=== PATIENT | male | born 1945 | race Two or more races ===

== ENCOUNTER 2017-06-17 18:56 | Inpatient (IN) | payer MEDICARE ==
[~2017-06-17] VITALS: Ht 162.6 cm; Wt 54.4 kg
--- NOTE | 2017-06-17 18:58 | Emergency Room Report ---
History of Present Illness General Source: Patient Present Illness HPI Patient is a 71-year-old male brought in by EMS after increased confusion. The patient poorly had a recent fall. Prior history of back herniated disks. Patient is a resident of [facility] Allergies: Coded Allergies: No Known Allergies (Unverified , 11/17/16) Patient History Past Medical History: see triage record Reviewed Nursing Documentation: PMH: Agreed; PSxH: Agreed Review of Systems All Other Systems: limited - by mental status Physical Exam Sp02 EP Interpretation: reviewed, normal General Appearance: normal inspection, well appearing, no apparent distress, alert, non-toxic, Chronically Ill Head: atraumatic ENT: normal ENT inspection, hearing grossly normal, normal voice Neck: normal inspection, full range of motion, supple, no bony tend Respiratory: normal inspection, lungs clear, normal breath sounds, no respiratory distress, no retraction, no wheezing Cardiovascular #1: regular rate, rhythm, no edema Gastrointestinal: normal inspection, normal bowel sounds, non tender, soft, no guarding, no hernia Genitourinary: no CVA tenderness Musculoskeletal: normal inspection, back normal, normal range of motion Neurologic: normal inspection, alert, responsive, motor weakness Psychiatric: normal inspection, judgement/insight normal, mood/affect normal Skin: normal inspection, normal color, no rash Medical Decision Making Diagnostic Impression: Primary Impression: Altered mental status, unspecified Additional Impressions: Fall Dementia ER Course Patient presented after fall. Differential diagnosis included was not limited to neck fracture, CVA, close head injury, syncopal episode, basilar ischemia. Because of complexity of patient's case laboratory testing and imaging studies were ordered. The CT head read by radiology showed no evidence of acute CVA or hemorrhage. The patient was noted to be somewhat confused. He was given oral Klonopin. Urinalysis no evidence of infection. Laboratory testing was unremarkable. Dr. Dylon Ross I was contacted for inpatient management Labs Test 06/17/17 19:17 06/17/17 20:10 White Blood Count 8.4 K/UL (4.8-10.8) Red Blood Count 5.91 M/UL (4.70-6.10) Hemoglobin 15.8 G/DL (14.2-18.0) Hematocrit 48.8 % (42.0-52.0) Mean Corpuscular Volume 82 FL (80-99) Mean Corpuscular Hemoglobin 26.7 PG (27.0-31.0) Mean Corpuscular Hemoglobin Concent 32.4 G/DL (32.0-36.0) Red Cell Distribution Width 12.3 % (11.6-14.8) Platelet Count 147 K/UL (150-450) Mean Platelet Volume 6.7 FL (6.5-10.1) Neutrophils (%) (Auto) 70.0 % (45.0-75.0) Lymphocytes (%) (Auto) 17.1 % (20.0-45.0) Monocytes (%) (Auto) 10.3 % (1.0-10.0) Eosinophils (%) (Auto) 1.3 % (0.0-3.0) Basophils (%) (Auto) 1.4 % (0.0-2.0) Sodium Level 135 MMOL/L (136-145) Potassium Level 4.1 MMOL/L (3.5-5.1) Chloride Level 99 MMOL/L (98-107) Carbon Dioxide Level 29 MMOL/L (21-32) Anion Gap 7 mmol/L (5-15) Blood Urea Nitrogen 12 mg/dL (7-18) Creatinine 1.2 MG/DL (0.55-1.30) Estimat Glomerular Filtration Rate 59.9 mL/min (>60) Glucose Level 97 MG/DL (74-106) Calcium Level 8.8 MG/DL (8.5-10.1) Total Bilirubin 1.2 MG/DL (0.2-1.0) Direct Bilirubin 0.2 MG/DL (0.0-0.3) Aspartate Amino Transf (AST/SGOT) 28 U/L (15-37) Alanine Aminotransferase (ALT/SGPT) 16 U/L (12-78) Alkaline Phosphatase 79 U/L (46-116) Total Protein 7.7 G/DL (6.4-8.2) Albumin 4.3 G/DL (3.4-5.0) Globulin 3.4 g/dL Albumin/Globulin Ratio 1.3 (1.0-2.7) Thyroid Stimulating Hormone (TSH) 2.924 uiU/mL (0.358-3.740) Serum Alcohol 5 mg/dL Urine Color Pale yellow Urine Appearance Clear Urine pH 8 (4.5-8.0) Urine Specific [place] 1.010 (1.005-1.035) Urine Protein Negative (NEGATIVE) Urine Glucose (UA) Negative (NEGATIVE) Urine Ketones Negative (NEGATIVE) Urine Occult Blood 5+ (NEGATIVE) Urine Nitrite Negative (NEGATIVE) Urine Bilirubin Negative (NEGATIVE) Urine Urobilinogen Normal MG/DL (0.0-1.0) Urine Leukocyte Esterase Negative (NEGATIVE) Urine RBC 10-15 /HPF (0 - 0) Urine WBC 0-2 /HPF (0 - 0) Urine Squamous Epithelial Cells None /LPF (NONE/OCC) Urine Bacteria Few /HPF (NONE) Status: unchanged Disposition: ADMITTED INPATIENT Condition: Gabriel Dominique Jun 17, 2017 18:58
[2017-06-17] MEDS ORDERED: KLONOPIN1 MG ORAL (19:02)
[2017-06-17] MEDS ORDERED: CLONIDINE0.1 MG GT (19:03)
[2017-06-17] MEDS ORDERED: GABAPENTIN300 MG ORAL (19:03)
[2017-06-17] MEDS ORDERED: MINIPRESS1 MG PO (19:03)
[2017-06-17] MEDS ORDERED: MECLIZINE HCL25 MG ORAL (19:04)
[2017-06-17] MEDS ORDERED: TAMSULOSIN HCL0.4 MG ORAL (19:04)
[2017-06-17] MEDS ORDERED: TRAMADOL HCL50 MG ORAL (19:04)
[2017-06-17 19:35] VITALS: BP 133/98
[2017-06-17 19:55] LABS: BASOPHILS % (AUTO) 1.4 % (0.0-2.0); EOSINOPHILS % (AUTO) 1.3 % (0.0-3.0); HEMATOCRIT 48.8 % (42.0-52.0); HEMOGLOBIN 15.8 G/DL (14.2-18.0); LYMPHOCYTES % (AUTO) 17.1 % (20.0-45.0); MEAN CORPUSCULAR VOLUME 82 FL (80-99); MONOCYTES % (AUTO) 10.3 % (1.0-10.0); PLATELET COUNT 147 K/UL (150-450); RED BLOOD COUNT 5.91 M/UL (4.70-6.10); RED CELL DISTRIBUTION WIDTH 12.3 % (11.6-14.8); WHITE BLOOD COUNT 8.4 K/UL (4.8-10.8)
[2017-06-17 20:08] LABS: ANION GAP 7 mmol/L (5-15); BLOOD UREA NITROGEN 12 mg/dL (7-18); CALCIUM 8.8 MG/DL (8.5-10.1); CARBON DIOXIDE 29 MMOL/L (21-32); CHLORIDE 99 MMOL/L (98-107); CREATININE 1.2 MG/DL (0.55-1.30); POTASSIUM 4.1 MMOL/L (3.5-5.1); SODIUM 135 MMOL/L (136-145)
[2017-06-17 20:22] LABS: ALANINE AMINOTRANSFERASE 16 U/L (12-78); ALBUMIN 4.3 G/DL (3.4-5.0); ALBUMIN/GLOBULIN RATIO 1.3 (1.0-2.7); ALKALINE PHOSPHATASE 79 U/L (46-116); ASPARTATE AMINO TRANSFERASE 28 U/L (15-37); BILIRUBIN,DIRECT 0.2 MG/DL (0.0-0.3); BILIRUBIN,TOTAL 1.2 MG/DL (0.2-1.0)
[2017-06-17 20:25] LABS: APPEARANCE,URINE CLEAR; BILIRUBIN, URINE NEGATIVE (NEGATIVE); COLOR,URINE PALE YELLOW; GLUCOSE, URINE (UA) NEGATIVE (NEGATIVE); KETONES,URINE NEGATIVE (NEGATIVE); LEUKOCYTE ESTERASE ,URINE NEGATIVE (NEGATIVE); NITRITE,URINE NEGATIVE (NEGATIVE); PH,URINE 8 (4.5-8.0); PROTEIN,URINE NEGATIVE (NEGATIVE); UROBILINOGEN,URINE NORMAL MG/DL (0.0-1.0)
[2017-06-17 21:00] VITALS: BP 159/89
[2017-06-17] MEDS ORDERED: Thiamine HCl 100 MG in D5W 55 ML IVPB SCH (21:00)
[2017-06-17 22:50] VITALS: BP 156/81
[2017-06-17 23:30] VITALS: BP 155/72
[2017-06-18] MEDS ORDERED: Meclizine 25mg tab ORAL PRN
[2017-06-18] MEDS: traMADol 50mg tab ORAL PRN ×2 (02:01→09:51)
[2017-06-18 04:00] VITALS: BP 156/67
[2017-06-18 07:09] LABS: BASOPHILS % (AUTO) 0.8 % (0.0-2.0); EOSINOPHILS % (AUTO) 1.3 % (0.0-3.0); HEMATOCRIT 49.4 % (42.0-52.0); HEMOGLOBIN 16.5 G/DL (14.2-18.0); LYMPHOCYTES % (AUTO) 19.6 % (20.0-45.0); MEAN CORPUSCULAR VOLUME 83 FL (80-99); MONOCYTES % (AUTO) 11.1 % (1.0-10.0); NEUTROPHILS % (AUTO) 67.1 % (45.0-75.0); PLATELET COUNT 135 K/UL (150-450); RED BLOOD COUNT 5.95 M/UL (4.70-6.10); RED CELL DISTRIBUTION WIDTH 12.6 % (11.6-14.8); WHITE BLOOD COUNT 8.5 K/UL (4.8-10.8)
[2017-06-18 07:33] LABS: ANION GAP 6 mmol/L (5-15); BLOOD UREA NITROGEN 12 mg/dL (7-18); CALCIUM 8.8 MG/DL (8.5-10.1); CARBON DIOXIDE 30 MMOL/L (21-32); CHLORIDE 100 MMOL/L (98-107); CREATININE 1.1 MG/DL (0.55-1.30); POTASSIUM 4.5 MMOL/L (3.5-5.1); SODIUM 136 MMOL/L (136-145)
[2017-06-18 07:42] VITALS: BP 161/86
[2017-06-18] MEDS ORDERED: Heparin 5000 units/ml inj SUBQ SCH (09:00)
--- NOTE | 2017-06-18 09:16 | Diagnostic Imaging Report ---
Indication: Altered mental status Technique: Contiguous 5 mm thick transaxial imaging of the head obtained in a Siemens Sensation [address] scanner. Soft tissue and bone windows generated. Automatic Exposure Control was utilized. Total Dose length Product (DLP): 1354.[address] Dose Index Volume (CTDIvol): 70.38 mGy Comparison: none Findings: There is mild prominence of the ventricles, basal cisterns, and cerebral sulci consistent with atrophy. Mild, nonspecific, white matter hypoattenuation is noted throughout the brain consistent with chronic small vessel disease. There is no midline shift, edema, acute hemorrhage, mass effect, or abnormal extra-axial fluid collections. Bones and extra osseous soft tissues are unremarkable. Impression: No acute intracranial bleed, mass effect or edema. Mild atrophy of the brain. Nonspecific white matter hypoattenuation probably due to chronic small vessel disease. [facility] has communicated the preliminary results to the Emergency Department. Their findings are largely concordant with this report. The CT scanner at [facility] is accredited by the [employer] and the scans are performed using dose optimization techniques as appropriate to a performed exam including Automatic Exposure control.
[2017-06-18 11:42] VITALS: BP 144/96
--- NOTE | 2017-06-18 12:17 | General Progress Note ---
Assessment/Plan Status: stable Assessment/Plan 1. Altered mental status - CT of head was negative. No source of Infection noted. will order MRI of brain to r/o CVA. No neurologist available at this time. CXR ordered as well. 2. HTN - change clonidine 0.2 mg po bid 3. BPH - cont flomax 0.4 mg two po qhs 4. spinal stenosis - taking tramadol 50 mg one po q 6 hrs prn 5. Vertigo - cont meclizine 25 mg one po TID prn 6. Depression and Anxiety - on clonazepam 1 mg one po daily and cymbalta 30 mg one po daily. 7. Dementia - on Aricept 10 mg one po qhs Subjective Date patient seen: Jun 18, 2017 Time patient seen: 11:00 Constitutional: Reports: other - dysarthria HEENT: Reports: no symptoms Cardiovascular: Reports: no symptoms Respiratory: Reports: no symptoms Gastrointestinal/Abdominal: Reports: no symptoms Genitourinary: Reports: no symptoms Neurologic/Psychiatric: Reports: no symptoms Endocrine: Reports: no symptoms Hematologic/Lymphatic: Reports: no symptoms Allergies: Coded Allergies: No Known Allergies (Unverified , 11/17/16) Subjective Patient is lying in bed and mumbling. His son and daughter at the bedside. Afebrile and No sob or chest pain. Objective Last 24 Hour Vital Signs Date Time Temp Pulse Resp B/P (MAP) Pulse Ox O2 Delivery O2 Flow Rate FiO2 06/18/17 11:42 96.4 95 18 144/96 95 96.4 06/18/17 10:50 98.3 06/18/17 09:51 98.3 06/18/17 08:10 161/86 06/18/17 07:42 98.3 93 18 161/86 98 98.3 06/18/17 04:00 98.2 78 16 156/67 97 98.2 06/17/17 23:30 97.9 77 16 155/72 98 97.9 06/17/17 23:00 98.7 80 18 156/81 99 Room Air 98.7 06/17/17 22:50 98.7 80 18 156/81 99 Room Air 98.7 06/17/17 21:00 89 18 159/89 99 Room Air 06/17/17 19:35 95 21 133/98 93 Room Air 06/17/17 18:58 98.2 96 20 154/79 96 Room Air 98.2 Intake and Output 06/17/17 06/18/17 19:00 07:00 Intake Total 50 ml Output Total 100 ml Balance -50 ml IV Total 50 ml Output Urine Total 100 ml # Voids 2 Laboratory Tests 06/17/17 19:17: White Blood Count 8.4, Red Blood Count 5.91, Hemoglobin 15.8, Hematocrit 48.8, Mean Corpuscular Volume 82, Mean Corpuscular Hemoglobin 26.7L, Mean Corpuscular Hemoglobin Concent 32.4, Red Cell Distribution Width 12.3, Platelet Count 147L, Mean Platelet Volume 6.7, Neutrophils (%) (Auto) 70.0, Lymphocytes (%) (Auto) 17.1L, Monocytes (%) (Auto) 10.3H, Eosinophils (%) (Auto) 1.3, Basophils (%) ( Auto) 1.4, Sodium Level 135L, Potassium Level 4.1, Chloride Level 99, Carbon Dioxide Level 29, Anion Gap 7, Blood Urea Nitrogen 12, Creatinine 1.2, Estimat Glomerular Filtration Rate 59.9, Glucose Level 97, Calcium Level 8.8, Total Bilirubin 1.2H, Direct Bilirubin 0.2, Aspartate Amino Transf (AST/SGOT) 28, Alanine Aminotransferase (ALT/SGPT) 16, Alkaline Phosphatase 79, Total Protein 7.7, Albumin 4.3, Globulin 3.4, Albumin/Globulin Ratio 1.3, Thyroid Stimulating Hormone (TSH) 2.924, Serum Alcohol 5 06/17/17 20:10: Urine Color Pale yellow, Urine Appearance Clear, Urine pH 8, Urine Specific [place] 1.010, Urine Protein Negative, Urine Glucose (UA) Negative, Urine Ketones Negative, Urine Occult Blood 5+H, Urine Nitrite Negative, Urine Bilirubin Negative, Urine Urobilinogen Normal, Urine Leukocyte Esterase Negative , Urine RBC 10-15H, Urine WBC 0-2, Urine Squamous Epithelial Cells None, Urine Bacteria Few 06/18/17 05:10: White Blood Count 8.5, Red Blood Count 5.95, Hemoglobin 16.5, Hematocrit 49.4, Mean Corpuscular Volume 83, Mean Corpuscular Hemoglobin 27.8, Mean Corpuscular Hemoglobin Concent 33.5, Red Cell Distribution Width 12.6, Platelet Count 135L, Mean Platelet Volume 6.5, Neutrophils (%) (Auto) 67.1, Lymphocytes (%) (Auto) 19.6L, Monocytes (%) (Auto) 11.1H, Eosinophils (%) (Auto) 1.3, Basophils (%) ( Auto) 0.8, Sodium Level 136, Potassium Level 4.5, Chloride Level 100, Carbon Dioxide Level 30, Anion Gap 6, Blood Urea Nitrogen 12, Creatinine 1.1, Estimat Glomerular Filtration Rate > 60, Glucose Level 77, Calcium Level 8.8 Height (Feet): 5 Height (Inches): 4.00 Weight (Pounds): 120 General Appearance: no apparent distress, confused EENT: normal ENT inspection Neck: non-tender, normal alignment, supple Cardiovascular: normal peripheral pulses, normal rate, regular rhythm Respiratory/Chest: lungs clear, normal breath sounds, no respiratory distress Abdomen: normal bowel sounds, non tender, soft Extremities: normal range of motion, non-tender Edema: no edema noted Arm (L), no edema noted Arm (R), no edema noted Leg (L), no edema noted Leg (R), no edema noted Pedal (L), no edema noted Pedal (R), no edema noted Generalized Neurologic: no motor/sensory deficits, responsive Skin: warm/dry Lymphatic: normal anterior cervical (L), normal anterior cervical (R), normal posterior cervical (L), normal posterior cervical (R), normal submandibular (L) , normal submandibular (R), normal supraclavicular (L), normal supraclavicular ( R), normal axillary (L), normal axillary (R), normal inguinal (L), normal inguinal (R), normal other REESE SPARROW Jun 18, 2017 12:17
[2017-06-18] MEDS ORDERED: LORazepam Inj 2mg/ml 1ml IV SCH ×2 (12:18→18:00)
[2017-06-18 15:36] VITALS: BP 150/92
[2017-06-18] MEDS: cloNIDine 0.2mg Tab ORAL SCH (17:40)
[2017-06-18] MEDS: Thiamine HCl 100 MG in D5W 55 ML IVPB SCH (17:41)
[2017-06-18 19:30] VITALS: BP 128/85
[2017-06-18] MEDS ORDERED: LORazepam Inj 2mg/ml 1ml IV ONE (20:00)
--- NOTE | 2017-06-18 20:00 | History and Physical Report ---
DATE OF ADMISSION: 06/17/2017 HISTORY OF PRESENT ILLNESS: This is a 71-year-old [place] male, who was brought in by paramedics for complaint of dizziness and vertigo status post fall x2 in the assisted living where he resides. The patient was more confused than his usual in the past few days according to his son and daughter. The patient denied any nausea, vomiting, abdominal pain, fever, or chills. No dysuria or urinary tension. The patient also had been mumbling and unable to understand. The patient had a CT scan of the brain that was negative for any bleeding in the emergency room. 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 SURGICAL HISTORY: Colonic polyp removed in 2012. CURRENT MEDICATIONS: Include clonidine 0.2 mg b.i.d., Flomax 0.8 mg at bedtime, tramadol 50 mg 2 b.i.d. p.r.n., Aricept 10 mg at bedtime, clonazepam 1 mg at bedtime p.r.n., Neurontin 100 mg at bedtime, and Cymbalta 30 mg daily. ALLERGIES: No known drug allergies. FAMILY HISTORY: Noncontributory. SOCIAL HISTORY: No history of smoking, alcohol, or drug use. 10 years ago. REVIEW OF SYSTEMS: Negative except per history of present illness. PHYSICAL EXAMINATION: Vital signs, temperature of 98.2, pulse 96, respirations 20, blood pressure 154/79, and pulse ox 96% on room air. LABORATORY AND DIAGNOSTIC DATA: Includes WBC 8.4, hemoglobin 15.8, hematocrit 48.8, platelet count 147,000, and neutrophils 70. Sodium 135, potassium 4.1, chloride 99, carbon dioxide 29, BUN 12, creatinine 1.2, glucose 97, and calcium 8.8. Total bilirubin 1.2. AST 28 and ALT 16. Albumin 4.3. TSH 2.92. Urine shows negative exam except for blood +5 and rbc 10 to 15 status post traumatic catheterization. Urine tox for alcohol was within normal range. IMPRESSION: 1. Altered mental status might be secondary to medication overdose versus cerebrovascular accident versus infectious cause. The patient will have chest x-ray and MRI of the brain to rule out cerebrovascular accident and to make sure there is no sign of infection in the chest and also, we will do tox screen for any medication overdose. We will try to get the Neurology consult as well. 2. Hypertension. We will restart the patient back on clonidine at home dose to control the blood pressure. 3. Benign prostatic hypertrophy. We will continue Flomax 0.8 mg at bedtime. 4. Anxiety and depression. We will restart the Klonopin and Cymbalta that patient was taking as outpatient. Dylon Bell M.D. DR: KISHOR JOB#: [id number] CC: MARLEE
[2017-06-18] MEDS: Donepezil 10mg tab ORAL SCH (22:09)
[2017-06-18] MEDS: Tamsulosin 0.4mg cap ORAL SCH (22:09)
[2017-06-19] VITALS (7 sets, daily range): BP systolic 122–159; BP diastolic 73–100
[2017-06-19 07:09] LABS: BASOPHILS % (AUTO) 1.2 % (0.0-2.0); EOSINOPHILS % (AUTO) 0.9 % (0.0-3.0); HEMATOCRIT 50.1 % (42.0-52.0); HEMOGLOBIN 16.2 G/DL (14.2-18.0); LYMPHOCYTES % (AUTO) 19.5 % (20.0-45.0); MEAN CORPUSCULAR VOLUME 83 FL (80-99); MONOCYTES % (AUTO) 13.3 % (1.0-10.0); NEUTROPHILS % (AUTO) 65.1 % (45.0-75.0); PLATELET COUNT 128 K/UL (150-450); RED BLOOD COUNT 6.06 M/UL (4.70-6.10); RED CELL DISTRIBUTION WIDTH 12.5 % (11.6-14.8); WHITE BLOOD COUNT 9.4 K/UL (4.8-10.8)
[2017-06-19 07:27] LABS: ANION GAP 12 mmol/L (5-15); BLOOD UREA NITROGEN 17 mg/dL (7-18); CALCIUM 8.9 MG/DL (8.5-10.1); CARBON DIOXIDE 23 MMOL/L (21-32); CHLORIDE 102 MMOL/L (98-107); CREATININE 1.1 MG/DL (0.55-1.30); POTASSIUM 3.9 MMOL/L (3.5-5.1); SODIUM 137 MMOL/L (136-145)
[2017-06-19] MEDS ORDERED: LORazepam Inj 2mg/ml 1ml IVP PRN (08:00)
[2017-06-19 08:03] LABS: PHOSPHORUS 3.4 MG/DL (2.5-4.9)
[2017-06-19] MEDS: cloNIDine 0.2mg Tab ORAL SCH ×2 (09:20→17:25)
--- NOTE | 2017-06-19 09:45 | Diagnostic Imaging Report ---
Indication: Head trauma. Headache. Patient fell hit the back of his head Technique: The head was imaged in a 1.5 [place] magnet. Sequences obtained include sagittal and axial T1 FLAIR, axial T2 fast spin echo with fat saturation, axial T2 FLAIR, diffusion and ADC map. Gadolinium-enhanced axial and coronal T1 FLAIR obtained also. Comparison: None There is a T1 isointense subdural collection over the right posterior parietal convexity having a maximum thickness of between 5 and 7 mm. This is consistent with relatively acute subdural hematoma. There is no appreciable mass effect on the underlying brain. The cerebral sulci appear symmetric. There is no evidence of appreciable subarachnoid or intraparenchymal blood identified. Generalized atrophy of the brain is present. There is no midline shift. There is no diffusion restriction to suggest acute CVA. The ventricles and basal cisterns are prominent in keeping with atrophy. Corpus callosum, sella, osseous bone marrow signal appears normal. There is no abnormal enhancement. IMPRESSION: 7 mm acute right posterior parietal subdural hematoma. No associated significant edema or mass effect. Age-related atrophy of the brain Critical value communication. Findings were discussed via telephone with Dylon Mesa at 9:30 AM, 06/19/2017 .
--- NOTE | 2017-06-19 12:02 | General Progress Note ---
Assessment/Plan Status: stable Assessment/Plan 1. Acute 7 mm right posterior parietal subdural hematomas seen in MRI of brain. No Mass effect. No neurologist available at this time to seen the patient. Will discharge the patient to [facility] rehab tomorrow and he will f/u with his neurologist as outpatient next wk. 2. HTN - controlled. cont clonidine 0.2 mg po bid 3. BPH - cont flomax 0.4 mg two po qhs 4. spinal stenosis - taking tramadol 50 mg one po q 6 hrs prn 5. Vertigo - cont meclizine 25 mg one po TID prn 6. Depression and Anxiety - on clonazepam 1 mg one po daily and cymbalta 20 mg one po daily. 7. Dementia - on Aricept 10 mg one po qhs Subjective Date patient seen: Jun 19, 2017 Time patient seen: 11:30 Constitutional: Reports: no symptoms HEENT: Reports: no symptoms Cardiovascular: Reports: no symptoms Respiratory: Reports: no symptoms Gastrointestinal/Abdominal: Reports: no symptoms Genitourinary: Reports: no symptoms Neurologic/Psychiatric: Reports: no symptoms Endocrine: Reports: no symptoms Hematologic/Lymphatic: Reports: no symptoms Allergies: Coded Allergies: No Known Allergies (Unverified , 11/17/16) Subjective Patient is sleeping and he had MRI of brain done this morning. His son and daughter at the bedside. Afebrile. No sob or chest pain. He has MRI of brain done this morning. currently sleep. His son states patient called him this morning and he was talking to him normally. Objective Last 24 Hour Vital Signs Date Time Temp Pulse Resp B/P (MAP) Pulse Ox O2 Delivery O2 Flow Rate FiO2 06/19/17 11:36 97.7 87 19 140/78 97 97.7 06/19/17 09:20 122/82 06/19/17 07:55 97.7 95 19 122/82 97 97.7 06/19/17 06:20 93 159/87 06/19/17 04:00 97.7 81 22 159/100 95 Room Air 97.7 06/19/17 00:00 98.1 92 22 151/73 95 Room Air 98.1 06/18/17 19:30 98.4 104 24 128/85 95 Room Air 98.4 06/18/17 17:40 150/92 06/18/17 15:36 97.7 95 18 150/92 95 97.7 Intake and Output 06/18/17 06/19/17 19:00 07:00 Intake Total 810 ml 30 ml Balance 810 ml 30 ml Intake Oral 810 ml 30 ml # Voids 6 2 # Bowel Movements 1 2 Laboratory Tests 06/19/17 06:15: White Blood Count 9.4, Red Blood Count 6.06, Hemoglobin 16.2, Hematocrit 50.1, Mean Corpuscular Volume 83, Mean Corpuscular Hemoglobin 26.8L, Mean Corpuscular Hemoglobin Concent 32.4, Red Cell Distribution Width 12.5, Platelet Count 128L, Mean Platelet Volume 6.9, Neutrophils (%) (Auto) 65.1, Lymphocytes (%) (Auto) 19.5L, Monocytes (%) (Auto) 13.3H, Eosinophils (%) (Auto) 0.9, Basophils (%) ( Auto) 1.2, Sodium Level 137, Potassium Level 3.9, Chloride Level 102, Carbon Dioxide Level 23, Anion Gap 12, Blood Urea Nitrogen 17, Creatinine 1.1, Estimat Glomerular Filtration Rate > 60, Glucose Level 87, Calcium Level 8.9, Phosphorus Level 3.4, Magnesium Level 2.1 Height (Feet): 5 Height (Inches): 4.00 Weight (Pounds): 120 General Appearance: no apparent distress EENT: normal ENT inspection, TMs normal, pharynx normal Neck: supple Cardiovascular: normal peripheral pulses, normal rate, regular rhythm Respiratory/Chest: lungs clear, normal breath sounds Abdomen: non tender, soft, no organomegaly Extremities: non-tender Edema: no edema noted Arm (L), no edema noted Arm (R), no edema noted Leg (L), no edema noted Leg (R), no edema noted Pedal (L), no edema noted Pedal (R), no edema noted Generalized Neurologic: responsive Skin: warm/dry Lymphatic: normal anterior cervical (L), normal anterior cervical (R), normal posterior cervical (L), normal posterior cervical (R), normal submandibular (L) , normal submandibular (R), normal supraclavicular (L), normal supraclavicular ( R), normal axillary (L), normal axillary (R), normal inguinal (L), normal inguinal (R), normal other REESE SPARROW Jun 19, 2017 12:02
[2017-06-19] MEDS ORDERED: Meclizine 25mg tab ORAL PRN (12:30)
[2017-06-19] MEDS: Thiamine HCl 100 MG in D5W 55 ML IVPB SCH (17:25)
[2017-06-19] MEDS: Tamsulosin 0.4mg cap ORAL SCH (20:56)
[2017-06-19] MEDS: Donepezil 10mg tab ORAL SCH (20:56)
[2017-06-20 00:59] VITALS: BP 150/8
[2017-06-20 04:00] VITALS: BP 147/89
[2017-06-20 08:00] VITALS: BP 150/86
[2017-06-20] MEDS: cloNIDine 0.2mg Tab ORAL SCH (08:43)
[2017-06-20] MEDS: traMADol 50mg tab ORAL PRN ×2 (08:44→14:57)
--- NOTE | 2017-06-20 08:49 | General Progress Note ---
Assessment/Plan Status: stable Assessment/Plan 1. Acute 7 mm right posterior parietal subdural hematomas seen in MRI of brain. No Mass effect. No neurologist available at this time to seen the patient. Will discharge the patient to [facility] rehab today. He will f/u with his neurologist as outpatient in one wk. 2. HTN - controlled. cont clonidine 0.2 mg po bid 3. BPH - cont flomax 0.4 mg two po qhs 4. spinal stenosis - taking tramadol 50 mg one po q 6 hrs prn 5. Vertigo - cont meclizine 25 mg one po TID prn 6. Depression and Anxiety - on clonazepam 1 mg one po daily and cymbalta 20 mg one po daily. 7. Dementia - on Aricept 10 mg one po qhs Subjective Date patient seen: Jun 20, 2017 Time patient seen: 08:35 Constitutional: Reports: no symptoms HEENT: Reports: no symptoms Cardiovascular: Reports: no symptoms Respiratory: Reports: no symptoms Gastrointestinal/Abdominal: Reports: no symptoms Genitourinary: Reports: no symptoms Neurologic/Psychiatric: Reports: no symptoms Endocrine: Reports: no symptoms Hematologic/Lymphatic: Reports: no symptoms Allergies: Coded Allergies: No Known Allergies (Unverified , 11/17/16) Subjective Patient is awake and doing better. Doesn't recall how he got to hospital. He is back to his baseline now. Afebrile. No sob or chest pain. He is going to rehab today. Objective Last 24 Hour Vital Signs Date Time Temp Pulse Resp B/P (MAP) Pulse Ox O2 Delivery O2 Flow Rate FiO2 06/20/17 08:43 150/86 06/20/17 08:00 97.7 101 19 150/86 94 97.7 06/20/17 04:00 Room Air 06/20/17 04:00 97.9 79 18 147/89 97 Room Air 97.9 06/20/17 00:59 97.5 77 18 150/8 95 Room Air 97.5 06/19/17 20:00 97.5 92 18 144/87 95 97.5 06/19/17 20:00 Room Air 06/19/17 17:25 156/83 06/19/17 15:56 97.2 92 19 156/83 95 97.2 06/19/17 11:36 97.7 87 19 140/78 97 97.7 06/19/17 09:20 122/82 Intake and Output 06/19/17 06/20/17 19:00 07:00 Intake Total 472 ml Balance 472 ml Intake Oral 360 ml IV Total 112 ml # Voids 3 # Bowel Movements 1 Height (Feet): 5 Height (Inches): 4.00 Weight (Pounds): 120 General Appearance: no apparent distress, alert EENT: normal ENT inspection Neck: supple Cardiovascular: normal rate, regular rhythm Respiratory/Chest: chest wall non-tender, lungs clear, normal breath sounds Abdomen: normal bowel sounds, non tender, soft Extremities: normal range of motion, non-tender Edema: no edema noted Arm (L), no edema noted Arm (R), no edema noted Leg (L), no edema noted Leg (R), no edema noted Pedal (L), no edema noted Pedal (R), no edema noted Generalized Neurologic: alert, oriented x 3, responsive Skin: warm/dry Lymphatic: normal anterior cervical (L), normal anterior cervical (R), normal posterior cervical (L), normal posterior cervical (R), normal submandibular (L) , normal submandibular (R), normal supraclavicular (L), normal supraclavicular ( R), normal axillary (L), normal axillary (R), normal inguinal (L), normal inguinal (R), normal other REESE SPARROW Jun 20, 2017 08:49
[2017-06-20] MEDS ORDERED: CYMBALTA20 MG ORAL (08:58)
[2017-06-20] MEDS ORDERED: GABAPENTIN100 MG ORAL (08:58)
[2017-06-20] MEDS ORDERED: CLONIDINE 0.2M0.2 MG ORAL (08:58)
[2017-06-20] MEDS ORDERED: MECLIZINE HCL25 MG ORAL (08:58)
[2017-06-20] MEDS ORDERED: CLONAZEPAM1 M2 ORAL (08:58)
[2017-06-20] MEDS ORDERED: DONEPEZIL HCL10 MG ORAL (08:58)
[2017-06-20] MEDS ORDERED: FLOMAX0.4 MG ORAL (08:58)
[2017-06-20] MEDS ORDERED: TRAMADOL HCL50 MG ORAL (08:58)
--- NOTE | 2017-06-20 10:51 | Diagnostic Imaging Report ---
Indication: Cough Comparison: None A single view chest radiograph was obtained. Findings: Cardiomediastinal appearance is within normal limits for age. Pulmonary vascularity is appropriate. The diaphragmatic contour is smooth and costophrenic angles are sharp. No pleural effusions are identified. The bones are unremarkable. Impression: No acute findings
[2017-06-20 12:00] VITALS: BP 155/78
[2017-06-20 16:00] VITALS: BP 146/75
[2017-06-20] MEDS ORDERED: Tubing IV Secondary IV ONE (16:39)
[2017-06-20] MEDS ORDERED: NS 275ml ONE (16:39)
--- NOTE | 2017-06-20 21:15 | Discharge Summary ---
DATE OF ADMISSION: 06/17/2017 DATE OF DISCHARGE: 06/20/2017 HOSPITAL COURSE: This is a 71-year-old Citizen Of [place] male who was brought in from assisted living status post fall x2. The patient had vertigo and was mumbling words that did not make any sense and was brought in by paramedics to the hospital. Initial CT scan of the brain in the emergency room was negative for any acute changes, however, MRI of brain was done the next day showing acute 7-mm right posterior parietal subdural hematoma, which was most likely due to the fall. The patient's MRI did not show any mass effect or any changes in the brain or any new CVA. Since there was no neurologist available in the hospital, we will have the patient follow up with his neurologist as an outpatient and we will transfer the patient to [facility] for physical therapy for 1 to 2 weeks. The patient was restarted on his blood pressure medication, clonidine 0.2 mg b.i.d., and Flomax 0.4 mg for his BPH while in the hospital. He was also restarted on his clonazepam 1 mg and Cymbalta 20 mg daily for his depression and anxiety. He is currently on Aricept 10 mg for his dementia as well. DISCHARGE DIAGNOSES: Include: 1. Acute right posterior parietal subdural hematoma, status post fall. 2. Hypertension. 3. BPH. 4. Spinal stenosis. 5. Vertigo. 6. Depression and anxiety. 7. Dementia. DISCHARGE MEDICATIONS: Clonidine 0.2 mg b.i.d., Flomax 0.8 mg nightly, tramadol 50 mg q.6 hours p.r.n., meclizine 25 mg t.i.d. p.r.n., clonazepam 1 mg daily, Cymbalta 20 mg daily, and Aricept 10 mg nightly. DISPOSITION: The patient will be transferred to [facility] for physical therapy and I will follow the patient within a few days while in the rehab. Sonia Heredia JOB#: [id number] CC:
--- NOTE | 2017-06-20 22:20 | Consultation ---
History of Present Illness General Date patient seen: Jun 20, 2017 Chief Complaint: Generalized Weakness Present Illness HPI 71-year-old [place] male who was brought in from assisted living status post fall x2. the pt has hx of subdural hematoma. the pt has been agitated and attempting to come out of bes. the pt is having cognitive impairment. Allergies: Coded Allergies: No Known Allergies (Unverified , 11/17/16) Medication History Scheduled Clonazepam* (Klonopin*), 1 MG ORAL Q6H, (Reported) Clonidine HCl (Clonidine HCl), 0.2 MG ORAL TWICE A DAY Donepezil Hcl* (Donepezil Hcl*), 10 MG ORAL QHS Duloxetine (Cymbalta), 20 MG ORAL DAILY Gabapentin* (Gabapentin*), 300 MG ORAL BEDTIME, (Reported) Gabapentin* (Gabapentin*), 100 MG ORAL BEDTIME Meclizine Hcl* (Meclizine*), 25 MG ORAL THREE TIMES A DAY, (Reported) Tamsulosin HCl (Flomax), 0.8 MG ORAL BEDTIME Tamsulosin Hcl (Tamsulosin Hcl*), 0.4 MG ORAL BEDTIME, (Reported) Scheduled PRN Clonazepam (Clonazepam), 1 MG ORAL BEDTIME PRN Meclizine Hcl* (Meclizine*), 25 MG ORAL BID PRN Tramadol Hcl* (Ultram*), 50 MG ORAL Q6H PRN for For Pain, (Reported) Tramadol Hcl* (Ultram*), 50 MG ORAL Q6H PRN Miscellaneous Medications Clonidine HCl (Clonidine HCl), 0.1 MG GT, (Reported) Prazosin Hcl* (Minipress*), 2 MG PO, (Reported) Patient History Limited by: medical condition History Provided By: Patient, Medical Record, PMD Healthcare decision maker Resuscitation status Full Code Advanced Directive on File Review of Systems Psychiatric: Reports: anxiety, depressed feelings, emotional problems Physical Exam General Appearance: no apparent distress, alert Neurologic: oriented x 3, responsive, normal mood/affect Last 24 Hour Vital Signs Date Time Temp Pulse Resp B/P (MAP) Pulse Ox O2 Delivery O2 Flow Rate FiO2 06/20/17 16:00 97.7 90 21 146/75 97 97.7 06/20/17 13:06 155/78 06/20/17 12:00 98.1 108 20 155/78 97 98.1 06/20/17 08:43 150/86 06/20/17 08:00 97.7 101 19 150/86 94 97.7 06/20/17 04:00 Room Air 06/20/17 04:00 97.9 79 18 147/89 97 Room Air 97.9 06/20/17 00:59 97.5 77 18 150/8 95 Room Air 97.5 Intake and Output 06/19/17 06/20/17 19:00 07:00 Intake Total 472 ml Balance 472 ml Intake Oral 360 ml IV Total 112 ml # Voids 3 # Bowel Movements 1 Height (Feet): 5 Height (Inches): 4.00 Weight (Pounds): 120 Assessment/Plan Status: stable, progressing Assessment/Plan encephalopathy cognitive impairment Shan Galvan M.D. Jun 20, 2017 22:20
== END 2017-06-20 16:40 | DRG 85 ==
LOC: EDBD 18:56 → EMR 21:16 → EDBEDREQ 21:41 → 4W 22:11
DX: S06.5X0A Traumatic subdural hemorrhage without loss of consciousness, initial encounter (principal); G93.40 Encephalopathy, unspecified; W19.XXXA Unspecified fall, initial encounter; Y92.129 Unspecified place in nursing home as the place of occurrence of the external cause; I10 Essential (primary) hypertension; N40.0 Benign prostatic hyperplasia without lower urinary tract symptoms; R42 Dizziness and giddiness; F41.8 Other specified anxiety disorders; F03.90 Unspecified dementia, unspecified severity, without behavioral disturbance, psychotic disturbance, mood disturbance, and anxiety; R41.82 Altered mental status, unspecified; Z86.73 Personal history of transient ischemic attack (TIA), and cerebral infarction without residual deficits; M51.36 Other intervertebral disc degeneration, lumbar region; M48.061 Spinal stenosis, lumbar region without neurogenic claudication
CPT/HCPCS: 36415; 70450; 70553; 71045; 80048; 80053; 80329; 81001; 82248; 83735; 84100; 84443; 85025; 87081; 99285; A9585

== ENCOUNTER 2017-07-01 10:45 | Outpatient (CLI) | payer MEDICARE ==
[~2017-07-01 10:45] MED LIST: CLONAZEPAM1 M2 ORAL; CLONIDINE 0.2M0.2 MG ORAL; CLONIDINE0.1 MG GT; CYMBALTA20 MG ORAL; DONEPEZIL HCL10 MG ORAL; FLOMAX0.4 MG ORAL; GABAPENTIN100 MG ORAL; GABAPENTIN300 MG ORAL; KLONOPIN1 MG ORAL; MECLIZINE HCL25 MG ORAL; MINIPRESS1 MG PO; TAMSULOSIN HCL0.4 MG ORAL; TRAMADOL HCL50 MG ORAL
--- NOTE | 2017-07-01 12:23 | Diagnostic Imaging Report ---
Indication: Fall. Subdural hemorrhage noted on prior MRI of the brain. Technique: MRI the brain performed utilizing T1 sagittal, T2 axial, T1 FLAIR axial, T2 FLAIR axial, T2*GRE and diffusion axial images without gadolinium. Comparison: Contrast enhanced MRI of the brain 418; CT head 06/17/2017. Findings: No diffusion abnormalities are seen on diffusion weighted imaging to suggest acute infarct. Recently identified subdural collection of the right posterior parietal convexity is overall decreased in thickness. It previously measured 5 to 7 mm in thickness. Currently one small focus of the collection measures up to 3-4 mm thickness (series 6 image #17). The remainder of the hematoma is mostly resolved on the right. Also, this hematoma was noted to be T1 isointense previously and is T1 hyperintense currently, compatible with evolution of blood products/subacute hemorrhage. A new thin subdural collection is noted on the left. This is not definitively seen on normal fast spin echo T2. It is easily seen on the T1 images and measures up to 3 mm in thickness. (Series 6 image 10). It is T1 hyperintense suggesting subacute blood products. There is also corresponding thin signal dropout on GRE. No focus of intraparenchymal hemorrhage is seen. The sulci, ventricles and cisterns are prominent consistent with mild atrophy. Size and configuration of the ventricular system is stable compared to the prior exam. There is no shift of midline structures. The sella and parasellar regions are unremarkable. Expected signal flow voids are seen of the vessels of the skull base. Visualized mastoid air cells and paranasal sinuses are unremarkable. No focal bony calvarium or soft tissue lesions are seen. IMPRESSION: Interval decrease in size of the known right subdural hematoma, with small residual measuring up to 3 - 4 mm thickness. Small subdural hematoma layering along the posterior left convexity and the left falx measuring up to 3 mm in thickness. This was not seen on the previous exam. Signal characteristics suggest subacute hemorrhage. Follow-up exam recommended. No associated significant edema or mass effect. Ventricle size and configuration stable compared to the prior exam. Mild atrophy. Findings discussed with ordering physician Dr. REESE SPARROW via telephone conversation approximately 11:45 AM on 07/01/2017.
== END 2017-07-01 12:45 | disposition home or self-care (01) ==
LOC: MRI 10:45
DX: S06.5X9D Traumatic subdural hemorrhage with loss of consciousness of unspecified duration, subsequent encounter (principal); G31.9 Degenerative disease of nervous system, unspecified; X58.XXXD Exposure to other specified factors, subsequent encounter
CPT/HCPCS: 70551

== ENCOUNTER → 2017-07-13 | Outpatient (CLI) | payer MEDICARE ==
--- NOTE | 2017-07-13 15:25 | Diagnostic Imaging Report ---
Indication: Trauma. Headache. History of a small subdural hematoma. Technique: The head was imaged in a 1.5 [place] magnet. Sequences obtained include sagittal and axial T1 FLAIR, axial T2 fast spin echo with fat saturation, axial T2 FLAIR, diffusion and ADC map. Comparison: 07/01/2017 MRI head Further decrease in prominence of a tiny right posterior subdural hematoma noted. The finding is now almost resolved. There is also near resolution of a tiny left posterior cerebral convexity hematoma that extends into the posterior interhemispheric fissure. Again there is a hint of this seen as a focus of slightly T1 and T2 hyperintense signal on T2 FLAIR and T1 sequences. There is no mass effect or edema. Generalized atrophy of the cerebrum and cerebellum again demonstrated. No new findings seen. There is no diffusion restriction. Osseous bone marrow signal, corpus callosum and sella appear unremarkable. Ventricles are symmetric. Basal cisterns appear normal. IMPRESSION: Near resolution of small subdural hematomas as described above.
== END | disposition home or self-care (01) ==
LOC: MRI 14:17
DX: R51 Headache (principal); S06.5X9A Traumatic subdural hemorrhage with loss of consciousness of unspecified duration, initial encounter; X58.XXXA Exposure to other specified factors, initial encounter
CPT/HCPCS: 70551